=== PATIENT | female | born 1970 | race Caucasian/White ===

== ENCOUNTER 2023-11-22 01:02 | Day surgery (SDC) | payer OTHER, SELFPAY ==
[2023-11-14 08:54] VITALS: BMI 25.0
--- NOTE | 2023-11-14 10:01 | PC.NURSE ---
Report to the Outpatient Waiting Room, entrance under the green pavilion located off [facility], at time _0930 on date _11/22/23 . Planned Procedure Time: _1130 . Time changes happen often and if your time is changed the preop area will call you the afternoon before. - You and your visitor will be asked to self-screen and do not enter if you have any COVID symptoms. - A mask is optional within the hospital at this time. Patients may have clear liquids (water, carbonated beverages, clear teas, apple juice) until 3 hours prior to surgery*0830AM with a maximum of 20 ounces. - No food from midnight until time of surgery - Take the following medications with a SIP of water the morning of surgery: __TOPAMAX; DULOXETINE DO NOT STOP ANY OF YOUR OTHER PRESCRIPTION MEDICATIONS PRIOR TO SURGERY ?EXCEPT THE FOLLOWING Medications to discontinue per physician ___MOBIC PER DR. AGUIRRE; VITAMINS/SUPPLEMENTS 11/09/23 Please no make-up, nail yi, hairspray, perfume, deodorant, or body powder the day of surgery. No jewelry (including any body piercings) or valuables the day of surgery, leave them at home. Please take a shower or bath the night before, or the morning of, surgery with an antibacterial soap. Wear comfortable, loose fitting clothing. - Jewelry must be removed prior to entering the operating room. Rings and piercings that are not removed may be cut off. - The hospital will not accept responsibility for valuables. - Please leave all valuables, including medications, at home the day of surgery. If you are going home after surgery, a licensed straddle bug driver must drive you home. - NO public transportation without another adult if you receive anesthesia. - We recommend that an adult stay with you for 24 hours following discharge. - We also recommend that you do not drive, make important decision, drink alcoholic beverages, or take any drugs that were not prescribed by your health care provider for at least 24 hours after your discharge time. Follow any additional instructions given to you from your surgeon. If you or anyone in your household have experienced Covid symptoms in the past week, please notify your surgeon or the nurse liaison at the phone number below for possible testing. Telephone instructions given to ___KATHY and asked if any additional questions and then verbalized understanding. Patient advised to call surgeon office or pre surgery nurse liaison [phone] if any additional questions.
[2023-11-22] VITALS (8 sets, daily range): BP systolic 104–129; BP diastolic 62–84; PULSE 80–101; RESP 14–18; TEMP 36.6–37.2; O2SAT 93–100
[2023-11-22] MEDS: LACTATED RINGERS 1,000 ML 30 ML IV CONT ×2 (10:00→15:17)
[2023-11-22 10:11] LABS: Urine Cotinine NEGATIVE
--- NOTE | 2023-11-22 10:45 | P.PNAN_ITS ---
Anes - Initial Pre Proc Eval Procedure: Operation Date: 11/22/23 11:30 Proposed Procedures p Bilateral Breast Augmentation - Kvng Wong MD s Bilateral Breast Mastopexy with Galaflex - Kvng Wong MD Date/Time: 11/22/23 10:45 Surgeon: Kvng Wong MD Pre Op Diagnosis: Micromastia, Breast Ptosis Patient Data Age: 53 Gender: F Height: 1.55 m Weight: 60.7 kg Last Vital Signs Temp 36.6 C 11/22/23 10:32 Pulse 82 11/22/23 10:32 Resp 16 11/22/23 10:32 BP 124/76 11/22/23 10:32 Pulse Ox 100 11/22/23 10:32 O2 Del Method Room Air 11/22/23 10:32 Allergies Allergy/AdvReac Type Severity Reaction Status Date / Time cefazolin [From [facility]] Allergy Mild Rash Verified 11/22/23 09:47 Home Medications Medication Instructions Recorded Confirmed Type ascorbate calcium (vitamin C) 500 500 mg PO DAILY 11/14/23 11/22/23 History mg tablet cholecalciferol (vitamin D3) 125 125 mcg PO DAILY 11/14/23 11/22/23 History mcg (5,000 unit) tablet (Vitamin D3) duloxetine 60 mg capsule,delayed 60 mg PO DAILY 11/14/23 11/22/23 History release estradiol 10 mcg vaginal insert 10 mcg vaginal DAILY 11/14/23 11/22/23 History (Imvexxy Maintenance Pack) melatonin 3 mg capsule 3 mg PO HS PRN Insomnia 11/14/23 11/22/23 History meloxicam 15 mg tablet 15 mg PO DAILY 11/14/23 11/22/23 History topiramate 50 mg tablet 50 mg PO DAILY 11/14/23 11/22/23 History vibegron 75 mg tablet (Gemtesa) 75 mg PO HS 11/14/23 11/22/23 History Laboratory Tests 11/22/23 09:44 Cotinine Negative Patient hx anesthesia problems: none Family hx anesthesia problems: none Results Review: All pre-operative results and documents have been reviewed as part of the pre- operative evaluation. [facility] Past Medical History Medical History (Updated 11/22/23 @ 10:45 by Collin West DO) IBS (irritable bowel syndrome) Migraine Social History Social History Smoking status: Never smoker Alcohol intake: current Substance use: never Substance use type: does not use Living arrangements: with family Spiritual care concerns: No Anes - Eval Final PreProcedure Day of Procedure 11/22/23 10:45 Patient weight: overweight Heart: regular rate and rhythm Lungs: clear to auscultation Airway: Mallampati scale class II Neurological: alert and oriented Last oral intake: >/= 8 hours ASA classification: II Emergent: no Anesthetic plan: proceed Anesthesia type and monitoring: general ETT and standard monitoring Results Review: All pre-operative results and documents have been reviewed as part of the pre- operative evaluation. Informed Consent: The patient's anesthetic plan and its attendant risks and benefits were discussed with the patient/family/POA. Questions were solicited and answers provided to the satisfaction of the patient/family/POA.
--- NOTE | 2023-11-22 11:41 | WPDHPUPDATE1 ---
History and Physical Update Update Date/Time: 11/22/23 11:41 History and Physical has been reviewed, including an updated exam of the patient. There are NO changes in the patient's condition. Risks, benefits, and alternatives have been discussed and questions answered. Patient agrees to proceed with procedure.
--- NOTE | 2023-11-22 11:41 | W.PM.PROC2 ---
Procedure Note - Detailed Date of Procedure 11/22/23 Pre-op Diagnosis Micromastia, Breast Ptosis Post-op Diagnosis Same Procedure Performed Bilateral Augmentation Mastopexy with Galaflex Surgeon Kvng Wong MD Anesthesia General Findings Inverted T Superior Medial Pedicle Bilateral Leighann Parks SoftTouch 405cc Right - REF# [id number] SN [id number] Left - REF# [id number] SN [id number] Lipoaspirate: 350 cc Description of Procedure She is here today for bilateral breast augmentation mastopexy. Previously and again today the risks, benefits, alternatives were discussed in extensive detail. I wanted her to be very realistic about the risks involved as well as expectations. She has significant asymmetry which was identified and discussed. We discussed aftercare and what to monitor for. Made sure answered all of her questions to her satisfaction today and consent was obtained. Marked in the preoperative holding area with their verification. The patient was taken to the operating room placed supine on the operating table. Anesthesia was provided by anesthesiology. A surgical time-out was taken. She was prepped and draped in a standard sterile fashion. 11 blade utilized to make a stab incision lateral breast along incision line. Low volume tumescent was utilized laterally. Once adequate time for hemostasis suction lipectomy was completed based on S.A.F.E. technique with a 4mm basket cannula. This was based on preoperative planning, intraoperative observation, and rolling pinch test which were in full agreement. Tegaderm nipple Wallis were placed. A 15 blade used to make an incision just superior to the inframammary fold leaving a cusp of de-epithelized tissue at the t junction. Dissection was continued until the chest wall as identified. I incised the pectoralis major along its inferior border and completely released the inferior border leaving the medial border intact. I created a subpectoral pocket in the appropriate dimensions based on our preoperative planning for the implant. I then copiously irrigated with saline solution and verified a strict hemostasis. Next the use a triple antibiotic and Betadine containing solution to irrigate the pocket. I washed my gloves with the triple antibiotic and Betadine solution. We washed the implant immediately upon opening it with this solution and only opened it when we needed it. I used implant funnel and no-touch technique. The implant was introduced into the pocket using the funnel. Having verified positioning of the implant this was closed using 2-0 PDS. I tailor tacked the breast into position. Placed her in a sitting position. Verified the nipple-areolar location based on preoperative planning as well as intraoperative observations and measurements in full agreement. She was placed supine. I de-epithelialized the pedicle. I then removed the inferior central portion of the breast need making sure the implant was well protected. I elevated medial and lateral tissue flaps as well for planned closure. Galaflex was soaking on the back table in a betadine solution. Trimmed and sutured into place with 2-0 Vicryl. I closed along the IMF with 2-0 Stratafix. Along the vertical with 2-0 PDS. I closed around the areola with 3-0 strata fix. 3-0 Monocryl along the vertical. 3-0 Stratafix along the IMF. I finally closed everything with running subcuticular 4-0 Monocryl and tissue glue. Fluffs and surgical bra were placed. Estimated Blood Loss 50 Drains No Packing No Pathology None sent Complications No immediate complications Condition Stable Disposition PACU
[2023-11-22] MEDS: MIDAZOLAM HCL (*CRX) 2 MG/2 ML VIAL IV PUSH (11:45)
[2023-11-22] MEDS: TRANEXAMIC ACID 1,000MG/ISO100 1,000 MG/100 ML BAG 200 MG IVPB (12:15)
[2023-11-22] MEDS: CLINDAMYCIN 900 MG/D5W 50 ML 900 MG/50 ML PIGGYBACK 50 MG IVPB (12:15)
[2023-11-22] MEDS: LACTATED RINGERS IRRIG 1,000 ML, LIDOCAINE HCL 1% LOCAL INJ 50 ML, EPINEPHrine HCL INJ ... INFILTRATE (13:10)
[2023-11-22] MEDS: fentaNYL CITRATE INJ (*CRX) 100 MCG/2 ML VIAL 25 MCG IV PUSH ×4 (15:43→16:00)
[2023-11-22] MEDS: oxyCODONE HCL (*CRX) 5 MG TAB IR PO (16:37)
== END 2023-11-22 17:15 | disposition home or self-care (01) ==
PROVIDERS: PCP Internal Medicine; Visit Provider Surgery Plastic and Reconstructive Surgery
PROC: (CPT 19325; principal; 2023-11-22 11:30)
PROC: (CPT 19316; 2023-11-22 11:30)
DX: Z41.1 Encounter for cosmetic surgery (principal); N64.82 Hypoplasia of breast; N64.81 Ptosis of breast
CPT/HCPCS: 19325; 19316; 15777 ×2; 80307; A9270; J0171; J1100; J1170; J1200; J1580; J2250; J2405; J2704; J3010; J7030; J7120